=== PATIENT | male | born 1940 | race Caucasian/White ===

== ENCOUNTER 2024-09-01 08:48 | Outpatient (CLI) | payer MEDICARE, SELFPAY ==
--- NOTE | ~2024-09-01 | CT_ITS ---
CT sinus wo con Ordering provider: Tam Grewal M.D. History: . J33.8 - Other polyp of sinus . Comparison: None. Technique: Thin slice Scans CT of the paranasal sinuses was performed with coronal and sagittal refor matted images. No IV contrast. . Automated exposure control and iterative reconstruction technique w ere employed. The dose-length product was 272.65 mGy-cm. Findings: NASAL SEPTUM: Mild left nasal septal deviation. Polyp is seen in the right nasal cavity anteriorly. P ossible polyp in the left nasal cavity medially. Clinical correlation advised. OSTEOMEATAL UNITS: The left is obliterated by mucosal thickening. NASAL TURBINATES AND NASOPHARYNX: Normal. PARANASAL SINUSES: Bilateral sphenoid, maxillary and ethmoid sinus disease. VISUALIZED MASTOIDS: Normal as visualized. BONES: Normal. SUPERFICIAL SOFT TISSUES/VISUALIZED BRAIN PARENCHYMA: Normal. IMPRESSION: Left nasal septal deviation. Polyp in the right nasal cavity anteriorly. Possible polyp in the left nasal cavity medially. Pansinusitis. Reviewed, dictated and finalized at location A. IMPRESSION: Left nasal septal deviation. Polyp in the right nasal cavity anteriorly. Possible polyp in the left nasal ca vity medially. Pansinusitis.
--- OUTSIDE RECORDS SUMMARY | 2024-09-01 09:10 | XMS_ITS | CONTINUITY OF CARE DOCUMENT ---
Author Name monroe childress Address Unknown Organization [facility] Address [address] [place] [address] Phone [phone] Care Team Providers Care Sediment Remediation Consultant Name Role Phone Carmita AYALA, Emmanuel Unavailable [phone] SNOW AYALA, SHAYNA Unavailable SNOW AYALA, SHAYNA Unavailable PROBLEMS Condition Status Date Provider Notes CAD active Emmanuel Vizcarra MD Pulmonary hypertension active Emmanuel Vizcarra MD Transient cerebral ischemia/CEREBRAL ATEHRO active Emmanuel Vizcarra MD HAD CE A n o cva Bradycardia;not due to rx completed 10/03 - Emmanuel Vizcarra MD FAMILY HISTORY OF HEART DISEASE active Emmanuel Vizcarra MD dad and brother Overweight active Emmanuel Vizcarra MD did not affoded wegogy Tobacco use, quit active Emmanuel Vizcarra MD t o remote to screen Carotid artery disease active Emmanuel Vizcarra MD cea 2022 Screening active Emmanuel Vizcarra MD HYPERTENSION active Emmanuel Vizcarra MD GERD active Emmanuel Vizcarra MD Anemia, B12 deficiency and IRON DEF active Emmanuel Vizcarra MD NEG FOLATE Adenomatous colonic polyp active Emmanuel garcia MD Anemia completed - Emmanuel Vizcarra MD Valvular heart disease completed 8 - Emmanuel Vizcarra MD severe as Diastolic CHF AND LVH active Emmanuel Vizcarra MD could not affored jardicne Sleep apnea active Emmanuel Vizcarra MD Hard of hearing active Emmanuel Vizcarra MD Hyperlipidemia;tami killianpa adn low crp active Emmanuel Vizcarra MD Other terminal block assembler (current) drug therapy completed - Emmanuel Vizcarra MD added for coverage of labs Prostate cancer active Emmanuel Vizcarra MD 200 2 covid 19;2020;HAD VACCINE active Emmanuel garcia MD Aortic atherosclerosis active Emmanuel Vizcarra MD Hiatal hernia active Emmanuel Vizcarra MD Cerebral atherosclerosis active Emmanuel adams MD no cva Aortic stenosis active Emmanuel Vizcarra MD had tavr 24 Vitamin D deficiency active Emmanuel Smith Bradycardia;nml tsh;not due to rx active Emmanuel Vizcarra MD ENCOUNTERS Date Type Provider Location Encounter Diag nosis - In-person encounter Office Visit Emmanuel [facility] Bradycardia;nml tsh;not due to rx - In-person encounter Office Visit Emmanuel Thompson [facility] OverweightDiastolic CHF AND LVH - In-person encounter Office Visit [facility] - In-person encounter Office Visit Emmanuel [facility] Valvular heart diseaseOther terminal block assembler (current) drug therapyAortic stenosisVitamin D deficiency - In-person encounter Office Visit [facility] Aortic stenosis - In-person encounter Office Visit Emmanuel [facility] Bradycardia;not due to rxAortic atherosclerosisHiatal herniaCerebral atherosclerosis - In-person encounter Office Visit Emmanuel [facility] Transient cerebral ischemia/CEREBRAL ATEHROAnemiaHyperlipidemia;wit ih highlpa adn low crpProstate cancercovid 19;2020;HAD VACCINE - In-person encounter Office Visit Emmanuel Vizcarra MD [place] [facility] Transient cerebral ischemia/CEREBRAL ATEHROFAMILY HISTORY OF HEART DISEASEOverweightTobacco use, quitCarotid artery diseaseScreeningHYPERTENSIONGE RDAnemia, B12 deficiency and IRON DEFAdenomatous colonic polypValvular heart diseaseDiastolic CHF AND LVHSleep apneaHard of hearing VITAL SIGNS Date Observation Value Provider Body Mass Index (Ratio) 28.31 kg/m2 Geo Vizcarra MD blood pressure, diastolic 80 mm[Hg] Sergio Spaulding blood pressure, systolic 142 mm[Hg] Pam heavena Jasson oxygen saturation, oximetry 98 % Aisha Spaulding pulse rate 55 /min Aisha Spaulding respiratory rate E&M 18 /min Aisha Spaulding weight E&M 203 [lb_av] Aisha Spaulding blood pressure, cuff size regular Sergio Spaulding height E&M 71 [in_i] Aisha Jasson Body Mass Index (Ratio) 27.61 kg/m2 Geo Vizcarra MD blood pressure, diastolic 76 mm[Hg] Vi dale Boland blood pressure, systolic 148 mm[Hg] [facility]ip [facility] E&M 12 /min [facility], oximetry 99 % Daniel [facility] pulse rate 63 /min Daniel [facility] weight E&M 198 [lb_av] [facility] blood pressure, cuff size regular Radha Boland height E&M 71 [in_i] Daniel [facility] Body Mass Index (Ratio) 28.73 kg/m2 Agustin Garcia MD blood pressure, cuff size regular Ke rri Gruenenfelder blood pressure, diastolic 62 mm[Hg] Ke rri Gruenenfelder blood pressure, systolic 124 mm[Hg] Taran ri Rondanetseringelder oxygen saturation, oximetry 97 % Starr Carolinaelder pulse rate 56 /min Starr Gruenenfe lder weight E&M 206 [lb_av] Starr Gruenenfe lder height E&M 71 [in_i] Starr Gruenenfe [facility] Body Mass Index (Ratio) 28.87 kg/m2 Geo Vizcarra MD blood pressure, diastolic 62 mm[Hg] Vi pin [facility] blood pressure, systolic 138 mm[Hg] [facility] in [facility] oxygen saturation, oximetry 98 % [facility] respiratory rate E&M 16 /min [facility] M akana pulse rate 60 /min [facility] weight E&M 207 [lb_av] [facility] blood pressure, cuff size regular Vi pin [facility] height E&M 71 [in_i] [facility] Body Mass Index (Ratio) 28.50 kg/m2 Agustin Garcia MD blood pressure, cuff size regular Am mery [place] RN blood pressure, diastolic 82 mm[Hg] Am mery Kang RN blood pressure, systolic 131 mm[Hg] [place] nda [place] RN oxygen saturation, oximetry 99 % Alyx Lynchyle RN pulse rate 63 /min Alyx Lynchyle RN weight E&M 204.4 [lb_av] Alyx Lynchyle RN respiratory rate E&M 16 /min Alyxmery Lynchyle RN height E&M 71 [in_i] Alyx Kapadia RN Body Mass Index (Ratio) 28.34 kg/m2 Geo Vizcarra MD blood pressure, diastolic 63 mm[Hg] Ky shyann Panda blood pressure, systolic 113 mm[Hg] Kyl ia Panda oxygen saturation, oximetry 98 % Fosterlierin Panda pulse rate 71 /min Kylia Panda respiratory rate E&M 12 /min Kylia Aracelis raham weight E&M 203.2 [lb_av] Fosterlia Panda blood pressure, cuff size regular Ky shyann Panda height E&M 71 [in_i] Kylia Panda Body Mass Index (Ratio) 29.29 kg/m2 Geo Vizcarra MD blood pressure, cuff size regular Ke rri Gruenenfeld blood pressure, diastolic 80 mm[Hg] Ke rri Gruenenfelder blood pressure, systolic 126 mm[Hg] Taran ri Lorne oxygen saturation, oximetry 99 % Starr Ranihu [facility] respiratory rate E&M 14 /min Starr ochoaeld pulse rate 52 /min Starr Alejandro er weight E&M 210 [lb_av] Starr Docuenenfe er height E&M 71 [in_i] Starr Docuenenfe [facility] Body Mass Index (Ratio) 28.45 kg/m2 Geo Vizcarra MD blood pressure, diastolic 74 mm[Hg] Li nkLogic blood pressure, systolic 121 mm[Hg] Pastora kLogic blood pressure, diastolic 74 mm[Hg] Ja rret blood pressure, systolic 121 mm[Hg] Jar ret pulse rate 58 /min Juan Pablo y height E&M 71 [in_i] Juan Pablo y blood pressure, cuff size regular Ja rret oxygen saturation, oximetry 99 % Juan Pablo respiratory rate E&M 16 /min Juan Pablo weight E&M 204 [lb_av] Juan Pablo y ALLERGIES Allergy Name Onset Date Reaction Criticality Status METOPROLOL TARTRATE kwasi Low Criticality active RESULTS Date Observation Value Provider Reference Range Interpretation Location basophil count, absolute 0.0 x10E3/uL [facility] 0.0-0.2 Eosinophil Absolute Count 0.2 X10E3/UL [facility] 0.0-0.4 monocyte count, blood, automated 0.4 X10E3/UL [facility] 0.1-0.9 lymphocyte count, blood, automated 1.2 X10E3/UL [facility] 0.7-3.1 Absolute Neutrophils 4.1 X10E3/UL [facility] 1.4-7.0 basophils as percent of blood leukocytes 1 % [facility] Not Estab. eosinophils as percent of blood leukocytes 3 % [facility] Not Estab. monocytes as percent of blood leukocytes 7 % [facility] Not Estab. lymphocytes as percent of blood leukocytes 20 % [facility] Not Estab. neutrophils as percent of blood leukocytes 69 % [facility] Not Estab. platelet count 217 X10E3/UL [facility] 991-339 8676/02/ 06 red blood cell distribution width 20.9 % [facility] 11.6-15.4 High mean corpuscular hemoglobin concentration, RBC 32.4 G/DL [facility] 31.5-35.7 mean corpuscular hemoglobin, RBC 29.2 pg [facility] 26.6-33.0 mean corpuscular volume, RBC 90 fL [facility] 79-97 hematocrit, blood 39.5 % [facility] 37.5-51.0 hemoglobin, blood 12.8 g/dL [facility] 13.0-17.7 Low erythrocyte (RBC) count 4.39 X10E6/UL [facility] 4.14-5.80 leukocyte count, blood 5.9 X10E3/UL [facility] 3.4-10.8 pro brain natriuretic peptide 464 pg/mL [facility] 0-486 free thyroxine index 1.6 [facility] 1.2-4.9 triiodothyronine resin uptake 26 % [facility] 24-39 thyroxine, serum, total 6.0 ug/dL [facility] 4.5-12.0 thyroid stimulating hormone, serum 1.720 u[IU]/mL [facility] 0.450-4.500 ferritin, serum 11 ng/mL [facility] 30-400 Low folate, serum 10.0 ng/mL [facility] >3.0 iron saturation percent, serum 4 % [facility] 15-55 Critical low iron, serum 18 ug/dL [facility] 38-169 Low iron binding capacity, unsaturated 403 ug/dL [facility] 111-343 High iron binding capacity, total 421 ug/dL [facility] 591-749 2894/12/ 06 basophil count, absolute 0.0 x10E3/uL [facility] 0.0-0.2 Eosinophil Absolute Count 0.2 X10E3/UL [facility] 0.0-0.4 monocyte count, blood, automated 0.5 X10E3/UL [facility] 0.1-0.9 lymphocyte count, blood, automated 1.4 X10E3/UL [facility] 0.7-3.1 Absolute Neutrophils 3.7 X10E3/UL [facility] 1.4-7.0 basophils as percent of blood leukocytes 1 % [facility] Not Estab. eosinophils as percent of blood leukocytes 3 % [facility] Not Estab. monocytes as percent of blood leukocytes 8 % [facility] Not Estab. lymphocytes as percent of blood leukocytes 24 % [facility] Not Estab. neutrophils as percent of blood leukocytes 64 % [facility] Not Estab. platelet count 220 X10E3/UL [facility] 128-296 2344/12/ 06 red blood cell distribution width 14.5 % [facility] 11.6-15.4 mean corpuscular hemoglobin concentration, RBC 29.2 G/DL [facility] 31.5-35.7 Low mean corpuscular hemoglobin, RBC 23.1 pg [facility] 26.6-33.0 Low mean corpuscular volume, RBC 79 fL [facility] 79-97 hematocrit, blood 29.8 % [facility] 37.5-51.0 Low hemoglobin, blood 8.7 g/dL [facility] 13.0-17.7 Low erythrocyte (RBC) count 3.77 X10E6/UL [facility] 4.14-5.80 Low leukocyte count, blood 5.9 X10E3/UL [facility] 3.4-10.8 Estimated Glomerular Filtration Rate (calc) 81 mL/min/{ 1.73_m2} [facility] >=60 Normal C, [address] [address] NT-pro BNP 1183 Link[facility] <=450 High C, [address] [address] aspartate aminotransferase (SGOT), serum 19 1/L [facility] 10-50 Normal C, [address] [address] alanine aminotransferase (SGPT), serum 9 1/L [facility] 7-55 Normal C, [place] [address] Alkaline phosphatase 35 [facility] 40-130 Low C, [place] [address] albumin, serum 4.0 g/dL [facility] 3.5-5.0 Normal C, [place] [address] protein, total, serum 7.0 g/dL [facility] 6.5-8.5 Normal C, [place] [address] bilirubin, serum, total 0.3 mg/dL [facility] 0.1-1.2 Normal , [place] [address] calcium, serum 10.5 mg/dL [facility] 8.5-10.3 High C, [place] [address] blood glucose, random 83 mg/dL [facility] 70-199 Normal C, [place] [address] creatine, serum 0.93 mg/dL [facility] 0.80-1.30 Normal , [place] [address] urea nitrogen, blood 19 mg/dL [facility] 6-25 Normal C, [place] [address] anion gap, serum 10 mmol/L [facility] 2-15 Normal C, [place] [address] carbon dioxide, venous blood 22 mmol/L [facility] 22-32 Normal C, [place] [address] chloride, serum 106 mmol/L [facility] 97-110 Normal , [place] [address] potassium, serum 4.7 MMOL/L [facility] 3.3-4.9 Normal [place] [address] sodium, serum 138 mmol/L [facility] 135-145 Normal C, [place] [address] activated partial thromboplastin time (aPTT) 33 s [facility] 28-38 Normal C, [place] [address] international normalized ratio (INR) 0.96 [facility] 0.90-1.20 Normal C, [place] [address] prothrombin time (patient) 10.4 s [facility] 9.7-13.0 Normal C, [place] [address] Absolute Basophils 0.0 K/CUMM [facility] 0.0-0.1 Normal C, [place] [address] Absolute Monocytes 0.5 K/CUMM [facility] 0.2-0.8 Normal C, [place] [address] Absolute Lymphocytes 1.4 K/CUMM [facility] 0.8-3.3 Normal C, [place] [address] Absolute Neutrophils 3.5 K/CUMM [facility] 1.5-6.5 Normal C, [place] [address] nucleated red blood cells as percent of blood leukocytes 0.00 K/CUMM [facility] 0.00-0.01 Normal red blood cell distribution width, size density 44.2 fL [facility] 35.7-48.1 Normal mean corpuscular hemoglobin concentration, RBC 29.5 G/DL [facility] 32.3-35.7 Low mean corpuscular hemoglobin, RBC 24.9 pg [facility] 27.1-33.3 Low mean corpuscular volume, RBC 84.4 fL [facility] 81.3-96.4 Normal erythrocyte count, whole blood 3.90 M/CUMM [facility] 4.30-5.80 Low mean platelet volume 10.4 fL [facility] 9.1-12.3 Normal platelet count 287 10*3/uL [facility] 150-400 Normal hematocrit, blood 32.9 % [facility] 38.9-50.3 Low hemoglobin, blood 9.7 g/dL [facility] 13.0-17.5 Low creatinine, serum 1.06 mg/dL [facility] 0.76-1.27 pro brain natriuretic peptide 1981 pg/mL [facility] 0-486 High prothrombin time (patient) 10.8 s [facility] 9.1-12.0 international normalized ratio (INR) 1.0 [facility] 0.9-1.2 calcium, serum 10.4 mg/dL [facility] 8.6-10.2 High carbon dioxide, venous blood 23 mmol/L [facility] 20-29 chloride, serum 106 mmol/L [facility] 96-106 potassium, serum 4.7 mmol/L [facility] 3.5-5.2 sodium, serum 140 mmol/L [facility] 926-169 8556/09/ 13 urea nitrogen/creatinine ratio, serum 15 [facility] 10-24 creatinine, serum 1.02 mg/dL [facility] 0.76-1.27 urea nitrogen, blood 15 mg/dL [facility] 8-27 blood glucose, random 88 mg/dL [facility] 70-99 basophil count, absolute 0.0 x10E3/uL [facility] 0.0-0.2 Eosinophil Absolute Count 0.2 X10E3/UL [facility] 0.0-0.4 monocyte count, blood, automated 0.5 X10E3/UL [facility] 0.1-0.9 lymphocyte count, blood, automated 1.7 X10E3/UL [facility] 0.7-3.1 Absolute Neutrophils 3.9 X10E3/UL [facility] 1.4-7.0 basophils as percent of blood leukocytes 1 % [facility] Not Estab. eosinophils as percent of blood leukocytes 4 % [facility] Not Estab. monocytes as percent of blood leukocytes 7 % [facility] Not Estab. lymphocytes as percent of blood leukocytes 27 % [facility] Not Estab. neutrophils as percent of blood leukocytes 61 % [facility] Not Estab. platelet count 256 X10E3/UL [facility] 041-043 5414/09/ 13 red blood cell distribution width 12.4 % [facility] 11.6-15.4 mean corpuscular hemoglobin concentration, RBC 30.5 G/DL [facility] 31.5-35.7 Low mean corpuscular hemoglobin, RBC 28.1 pg [facility] 26.6-33.0 mean corpuscular volume, RBC 92 fL [facility] 79-97 hematocrit, blood 33.8 % [facility] 37.5-51.0 Low hemoglobin, blood 10.3 g/dL [facility] 13.0-17.7 Low erythrocyte (RBC) count 3.67 X10E6/UL [facility] 4.14-5.80 Low leukocyte count, blood 6.3 X10E3/UL [facility] 3.4-10.8 HISTORY OF MEDICATION USE Medication Status Instructions Dates Provider Indications Com ments hydrochlorothiazide 12.5 mg tablet active Take 1 tablet by mouth once daily Emmanuel Vizcarra MD Xarelto 2.5 mg tablet active TAKE 1 TAB LET TWICE A DAY Emmanuel Vizcarra MD fluticasone propionate 50 mcg/actuation spray,suspension active Aisha Spaulding prednisone 20 mg tablet active Aisha Spaulding Jardiance 10 mg tablet completed Take 1 tablet by mouth once a day - Emmanuel Vizcarra MD [place] 200 mg tablet completed Take 1 tabl et by mouth once a day - Emmanuel Vizcarra MD Feosol 325 mg (65 mg iron) tablet active TAKE 1 TABLET BY MOUTH EVERY DAY Emmanuel Vizcarra MD ergocalciferol (vitamin D2) 1,250 mcg (50,000 unit) capsule active Take 1 capsule by mouth once a week Emmanuel Vizcarra MD Wegovy 0.25 mg/0.5 mL pen injector completed Inject 1 pen injector subcutaneously once a week - Emmanuel Vizcarra MD cyanocobalamin (vitamin B-12) 1,000 mcg capsule active TAKE 1 CAPSULE BY MOUTH EVERY DAY Emmanuel Vizcarra MD clopidogrel 75 mg tablet completed TAKE 1 TABLET BY MOUTH DAILY - Emmanuel Vizcarra MD clopidogrel 75 mg tablet completed Take 1 tablet by mouth once a day - Abidachrist Teresa ranolazine 500 mg tablet extended release 12 hr completed TAKE 1 TABLET BY MOUTH TWICE DAILY - Emmanuel Vizcarra MD losartan 100 mg tablet active Emmanuel Vizcarra MD simvastatin 40 mg tablet active Emmanuel Vizcarra MD Aspirin Childrens 81 mg tablet,chewable active Emmanuel Vizcarra MD Pepcid AC 10 mg tablet completed - Emmanuel Vizcarra MD Prevacid 30 mg capsule,delayed release(DR/EC) active Emmanuel Vizcarra MD cyanocobalamin (vitamin B-12) 1,000 mcg capsule completed - Emmanuel Vizcarra MD SOCIAL HISTORY Date Observation Value Provider cigarette use yes Emmanuel Vizcarra MD smoking status Former smoker Emmanuel khan MD cigarette use yes Emmanuel Vizcarra MD smoking status Former smoker Emmanuel khan MD cigarette use yes Emmanuel Vizcarra MD smoking status Former smoker Emmanuel khan MD cigarette use yes Emmanuel Vizcarra MD smoking status Former smoker Emmanuel khan MD cigarette use yes Emmanuel Vizcarra MD smoking status Former smoker Emmanuel khan MD quit smoking, stage quit Emmanuel rader MD cigarette use yes Juan Pablo Lau ay smoking status Former smoker Juan Pablo Delmar stephanie FUNCTIONAL STATUS Date Observation Value Provider HRA, CV Assess/Plan, Angina (inactive) Management Plan continue current therapy Emmanuel Vizcarra MD HRA, CV Assess/Plan, Angina (inactive) Management Plan continue current therapy Emmanuel Vizcarra MD HRA, CV Assess/Plan, Angina (inactive) Management Plan continue current therapy Chuck Garcia MD HRA, CV Assess/Plan, Angina (inactive) Management Plan continue current therapy Emmanuel Vizcarra MD HRA, CV Assess/Plan, Angina (inactive) Management Plan continue current therapy Chuck Garcia MD HRA, CV Assess/Plan, Angina (inactive) Management Plan continue current therapy Emmanuel Vizcarra MD HRA, CV Assess/Plan, Angina (inactive) Management Plan continue current therapy Emmanuel Vizcarra MD INSURANCE PROVIDERS Payer name Policy type / Coverage type [place] red republic[place]IC[place] B Medicare [id number] [facility] [employer] insurance [employer] [id number] ADVANCE DIRECTIVES Name Date DISCUSSED - NO DECISION MADE TREATMENT PLAN Date Name Performer Cardiology: f u neg 25 Emmanuel Vizcarra MD Cardiology: f u echo goo with mild tr and mild mr Emmanuel Vizcarra MD Cardiology Emmanuel Vizcarra MD Cardiology: H is updated medication list for this problem includes: Losartan 100 Mg Tablet (Losartan) Aspirin Childrens 81 Mg Tablet,chewable (Aspirin) BP today: 142/80 P rior BP: 148/76 (04/23/2024) Labs Reviewed: C reat: 1.06 (12/18/2023) Emmanuel Vizcarra MD Cardiology: 4 64 ef 60% Emmanuel Vizcarra MD Cardiology: m ild p t does not watn rx for ramy of symtpme Emmanuel Vizcarra MD Cardiology Emmanuel Vizcarra MD Cardiology: 4 0 Emmanuel Vizcarra MD Cardiology: n eg psa Emmanuel Vizcarra MD Cardiology Emmanuel Vizcarra MD Cardiology: c orrecteded up tod date on colon Emmanuel Vizcarra MD Cardiology Emmanuel Seroterin AYALA Cardiology: 2 500 lad 40% Emmanuel Vizcarra MD :correcteded up tod date on colo n Emmanuel Vizcarra MD Cardiology: H is updated medication list for this problem includes: Simvastatin 40 Mg Tablet (Simvastatin) Emmanuel Vizcarra MD Cardiology: m ild p t does not watn rx for ramy of symtpme Emmanuel Vizcarra MD Cardiology: n eg psa Emmanuel Vizcarra MD Cardiology Emmanuel Vizcarra MD Cardiology Emmanuel Vizcarra MD Cardiology Emmanuel Vizcarra MD Cardiology:2500 lad 40% Emmanuel S dior AYALA Cardiology:up to date on colaon Emmanuel Vizcarra MD Cardiology: N EG UACR AND EGFR AND PFT AND TSH b rady in past due to bb Emmanuel Vizcarra MD Cardiology: f u echo goo with mild tr and mild mr Emmanuel Carmita AYALA Cardiology: 4 64 ef 60% Emmanuel Vizcarra MD :fu echo goo with mild tr and mi ld mr Emmanuel Vizcarra MD :40 Emmanuel Vizcarra MD :464 ef 60% Emmanuel Vizcarra MD Cardiology: H is updated medication list for this problem includes: Simvastatin 40 Mg Tablet (Simvastatin) Chuck Garcia MD Cardiology:no angina Chuck Garcia MD Cardiology:This is a n 83 years old male who presents for f/u post TAVR- he had critical and reveived a Tom Francisco 3, ultra resilia 26 mm valve. He has been doing well since and denies chest pains, dizziness, sob. He is able to take long walks and walk up inclines witihout problems.He is satisfied by the results. asa + plavix for 90 days t hen down to asa alone echo soon Chuck Garcia MD :464 Emmanuel Vizcarra MD :NEG UACR AND EGFR AND PFT AND T SH Emmanuel Vizcarra MD Cardiology:33 Emmanuel Vizcarra MD Cardiology:2500 lad 40% C ardiac cath showed non obstructive cad. Emmanuel Vizcarra MD Cardiology: H is updated medication list for this problem includes: Simvastatin 40 Mg Tablet (Simvastatin) Emmanuel Vizcarra MD Cardiology: n eg psa Emmanuel Vizcarra MD Cardiology: f u neg 12/2023 Emmanuel Vizcarra MD Cardiology Emmanuel Vizcarra MD Cardiology:646 d o to as 1 900 Emmanuel Vizcarra MD Cardiology: n eg uacr n eg egfr and pft Emmanuel Vizcarra MD Cardiology:fu echo midl mr and t r Emmanuel Vizcarra MD Cardiology: H is updated medication list for this problem includes: Simvastatin 40 Mg Tablet (Simvastatin) Emmanuel Vizcarra MD Cardiology: n eg psa Emmanuel Vizcarra MD Cardiology: f u neg 12/2023 Emmanuel Vizcarra MD Cardiology: d o to as 1 900 Emmanuel Vizcarra MD Cardiology: n eg uacr n eg egfr and pft Emmanuel Vizcarra MD Cardiology Emmanuel Vizcarra MD :fu neg 12/2023 Emmanuel Vizcarra MD Cardiology: H is updated medication list for this problem includes: Losartan 100 Mg Tablet (Losartan) Aspirin Childrens 81 Mg Tablet,chewable (Aspirin) BP today: 131/82 P rior BP: 113/63 (12/13/2023) Labs Reviewed: C reat: 1.02 (11/30/2023) Chuck Garcia MD Cardiology:to have carotid doppl ers Chuck Garcia MD Cardiology: The bello ent comes in today for f/u of severe . The patient complains of exertional dyspnea with exertion such as one flight of stairs. He has to stop when walking on level ground. He has had had some lightleadedness on standing up. No syncope. No edema, palpiations. H is echo showed with normal lvef and . The Aortic Valve Peak Gradient is 79.70 mmHg. T he Aortic Valve Mean Gradient is 45.10 mmHg. The MAJOR is 0.7 cm2. The Aortic Valve Peak Gradient is 79.70 mmHg. The Aortic Valve Mean Gradient is 45.10 mmHg C ardiac cath showed non obstructive cad. Iliac and femorals were fine for access for tavr. detailed d/w pt and his regarding tavr planning, procedure, complications, imiidiate and terminal block assembler and f/u h e wishes to proceed with further eval for tavr and will get ct scan and pft also w ill contact tavr coordinator Chuck Garcia MD Cardiology:Cardiac cath showed n on obstructive cad. Chuck Garcia MD Cardiology Emmanuel Vizcarra MD Cardiology Emmanuel Vizcarra MD Cardiology: m ild p t does not watn rx for ramy of symtpme Emmanuel Vizcarra MD Cardiology Emmanuel Vizcarar MD Cardiology Emmanuel Vizcarra MD Cardiology Emmanuel Vizcarra MD Cardiology:do to as 1 900 Emmanuel Vizcarra MD Cardiology: n eg uacr n eg egfr and pft Emmanuel Vizcarra MD Cardiology:no ai m illd ot mod mr and mild tr by echo s evere as by echo could not cross aortic valve Emmanuel Vizcarra MD Cardiology: 3 1 Emmanuel Vizcarra MD Cardiology: s core 2500 40% mid lad cad by cath Emmanuel Vizcarra MD Cardiology Emmanuel Vizcarra MD think tsh:score 2500 40% mid lad cad by cath Emmanuel Vizcarra MD think tsh:milld ot m od my and mild tr by echo s evere as by echo could not cross aortic valve Emmanuel Vizcarra MD think tsh:score 2500 mild cad by cath Emmanuel Vizcarra MD needs iron and foalte:1900 Varinder Vizcarra MD Cardiology Emmanuel Vizcarra MD Cardiology:neg psa Emmanuel Viczarra MD Cardiology Emmanuel Vizcarra MD Cardiology Emmanuel Vizcarra MD Cardiology:31 Emmanuel Vizcarra MD Cardiology Emmanuel Vizcarra MD Cardiology Emmanuel Vizcarra MD Cardiology: s evere , mild to mod mr and mild tr Emmanuel Vizcarra MD Cardiology:neg uacr n eg egfr and pft Emmanuel Vizcarra MD Cardiology: 2 500 score Emmanuel Vizcarra MD Cardiology: m ild p t does not watn rx for ramy of symtpme Emmanuel Vizcarra MD :mild Emmanuel Vizcarra MD :2500 score Emmanuel Vizcarra MD :neg egfr and pft Emmanuel Vizcarra MD :severe , mild to mod mr and m ild tr Emmanuel Vizcarra MD Cardiology:FU DONE AT [facility] Emmanuel Vizcarra MD Cardiology:neg egfr Emmanuel khan MD Cardiology:SX Emmanuel Vizcarra MD Cardiology Emmanuel Vizcarra MD Cardiology Emmanuel Vizcarra MD Cardiology Emmanuel Vizcarra MD Cardiology Emmanuel Vizcarra MD Cardiology Emmanuel Vizcarra MD Cardiology Emmanuel Vizcarra MD Cardiology Emmanuel Vizcarra MD Cardiology Emmanuel Vizcarra MD Cardiology:MILD TR P AP 30 M OD 22 M ILD MR Emmanuel Vizcarra MD Date Name Carotid Duplex Bilat eral EKG Monitor - Telemetry (Mobile Cardiac) CBC (INCLUDES DIFF/P LT) Complete Echo Complete Echo PROBNP, N TERMINAL Complete Echo FOLATE, SERUM Monitor - Telemetry (Mobile Cardiac) TSH, free T4, total T3 Carotid Duplex Bilat eral IRON AND TOTAL IRON BINDING CAPACITY FERRITIN CBC (INCLUDES DIFF/P LT) CT Angio, abdomen an d pelvis CT Angio Chest (Aort a) CT Cardiac with cont rast (Pre-Ablation) Creatinine, Serum Holter Monitor 24 Hr FOLATE, SERUM IRON AND TOTAL IRON BINDING CAPACITY FERRITIN TSH, free T4, total T3 RPM (remote patient monitoring) PROBNP, N TERMINAL PROTHROMBIN TIME WIT H INR CBC (INCLUDES DIFF/P LT) BASIC METABOLIC PANE L W/EGFR AORTAGRAM, ABDOMINAL AORTIC ROOT RT & LT HRT CATH [facility]EL[facility] PROCED URES CXR- PA/Lat Holter Monitor 24 Hr Carotid Duplex Bilat eral PROBNP, N TERMINAL DLCO - 47536 FRC - 93474 FVC - 25837 Sleep Study Home PROTHROMBIN TIME WIT H INR LIPID PANEL CBC (INCLUDES DIFF/P LT) BASIC METABOLIC PANE L W/EGFR Complete Echo CT, Coronary Calcium Score Holter Monitor 24 Hr FOLATE, SERUM IRON AND TOTAL IRON BINDING CAPACITY FERRITIN CBC (INCLUDES DIFF/P LT) Vitamin D, 25-Hydrox y TSH, free T4, total T3 Microalb/Creatinine Urine, Random CRP, high sensitivit y Lipoprotein (a) LIPID PANEL Carotid Duplex Bilat eral Complete Echo HISTORY OF PROCEDURES Procedure Date Procedure Name Provider Procedure Notes S tatus Complex e/m visit add on Emmanuel Vizcarra MD completed Complex e/m visit add on Chuckgregorio Garcia MD completed Complex e/m visit add on Emmanuel Vizcarra MD completed Complex e/m visit add on Chuck Garcia MD completed Complex e/m visit add on Emmanuel Vizcarra MD completed Complex e/m visit add on Emmanuel Vizcarra MD completed Spirometry Emmanuel Vizcarra MD complete d FVC / MVV - 61371 Emmanuel Vizcarra MD c ompleted BLOOD COUNT HEMOGLOBIN Emmanuel Vizcarra MD completed SpO2 w/o 6min walk/titration Emmanuel Vizcarra MD completed SVC - [id number] Emmanuel Vizcarra MD complet ed DLCO - 06353 Emmanuel Vizcarra MD comple jina CT- Coronary CA score Emmanuel Vizcarra MD completed EKG Emmanuel Vizcarra MD complete d
--- OUTSIDE RECORDS SUMMARY | 2024-09-01 09:10 | XMS_ITS | Clinical Summary ---
Author Organization [facility] Address [address] [place] [address] Care Team Providers Care Senior Medical Technologist Name Role Phone Naren Sanchez MD Primary Care Provider Allergies Active Allergy Reactions Criticality Noted Date Comments Hydroxychloroquine Diarrhea Low 12/02/2021 Lisinopril Cough Low 12/02/2021 Metoprolol Tartrate Other (See comments) Low 2023 Bradycardia Medications losartan (COZAAR) 100 mg tabletIndicati ons:hypertensi on Take 1 tablet (100 mg total) by mouth every morning Active simvastatin (ZOCOR) 40 mg tabletIndicati ons:hyperlipid emia Take 1 tablet (40 mg total) by mouth nightly 1 09/10/19 18 Active triamcinolone (KENALOG) 0.1 % cream Apply oint bid prn to areas of eczema 60 g 3 04/26/19 21 Active loratadine (CLARITIN) 10 mg tabletIndicati ons:Allergic Rhinitis Take 1 tablet (10 mg total) by mouth daily as needed Active acetaminophen 500 mg capsuleIndicat ions:Pain Take 2 capsules (1,000 mg total) by mouth every 8 (eight) hours 90 tablet 10/28/19 23 Active Additional Information Patient taking differently:1,000 mg oral3 times daily PRN, Indications: Pain, Reported on 01/22/2024 aspirin 81 mg enteric coated tablet Take 1 tablet (81 mg total) by mouth daily Active diphenhydrAMIN E 25 mg capsule Take 1 tablet/capsule (25 mg total) by mouth every 6 (six) hours as needed for itching Active lansoprazole (PREVACID) 30 mg capsule Take 1 capsule (30 mg total) by mouth daily Active fluticasone propionate (FLONASE) 50 mcg/actuation nasal spray Administer 1 spray into each nostril daily as needed for rhinitis Active cyanocobalamin , vitamin B-12, 1,000 mcg capsule Take 1 tablet by mouth daily Active clopidogreL (PLAVIX) 75 mg tablet Take 1 tablet (75 mg total) by mouth daily 30 tablet 11 01/23/20 24 025 Active FeroSuL 325 mg (65 mg iron) tablet Take 1 tablet (325 mg total) by mouth daily Active ergocalciferol (VITAMIN D) 50,000 unit capsule ergocalciferol (vitamin D2) 1,250 mcg (50,000 unit) capsule 02/20/20 24 Active senna-docusate (PERICOLACE) 8.6-50 mgIndications: constipation Take 2 tablets by mouth 2 (two) times a day 80 tablet 10/28/19 23 025 Discontin ued(Patie nt Reported) bisacodyl EC (DULCOLAX EC) 5 mg EC tabletIndicati ons:constipati on Take 1 tablet (5 mg total) by mouth daily as needed for constipation 30 tablet 3 09/10/19 24 025 Discontin ued(Patie nt Reported) Active Problems Problem Noted Date Diagnosed Date S/p TAVR (transcatheter aort ic valve replacement), bioprosthetic 01/22/2024 Severe aortic stenosis 01/07/2024 Encounter for surgical after care following surgery on the circulatory system 07/30/2023 Primary osteoarthritis of right knee 10/27/2022 History of TIA (transient ischemic attack) 10/18 History of prostate cancer 10/18/2022 At risk for obstructive sleep apnea 10/18/2022 Hematoma of neck 05/03/2022 Assessment & Plan (05/03/2022 9:36 AM LINING SETTER): - Right neck hematoma immediately post op, worsening post op day 1-2 - Patient endorsing discomfort with swallowing - ST consulted - Monitor neck hematoma - US 05/02: Hematoma within the right neck soft tissues without evidence of pseudoaneurysm. Carotid artery disease 05/01/2022 Stenosis of right carotid artery 04/12/2022 Overview (04/12/2022): Added automatically from request for surgery [id number] Assessment & Plan (05/03/2022 9:32 AM LINING SETTER): Hx of R carotid stenosis. Had a TIA in December 2021 with tingling of Right sided cheek, nose and right eye with blurred vision that lasted for 5-10 minutes and then resolved. No hx of CVA. Most recent US showed >70%. - 05/01 s/p R CEA - Q4 NV checks - BP goal 110-150 - Regular diet - OOB - cont ASA, statin - JEFF drain removed - Right neck hematoma (see other problem) Allergic rhinitis 12/02/2021 Basal cell carcinoma of face 12/02/2021 Benign essential hypertension 12/02/2021 Assessment & Plan (05/03/2022 9:43 AM LINING SETTER): Home regimen: losartan 100mg - restart home losartan as able, will resume at 1/2 dose today - SBP goal 110-150 Osteoarthritis of knee 12/02/2021 Primary malignant neoplasm of bladder 12/02/2021 Pure hypercholesterolemia 12/02/2021 Vertigo 10/26/2021 Gastroesophageal reflux disease without esophagi tis 06/05/2021 Assessment & Plan (05/01/2022 10:50 AM LINING SETTER): -cont home famotidine Assessment & Plan (06/05/2021 3:32 PM CDT): As there are the fewest risks associated with Pepcid, we would like the patient to try using this consistently and Tums if necessary for breakthrough. If this is insufficient, Prevacid, Nexium, or omeprazole can be used ideally for the shortest duration possible Encounter for screening colonoscopy 05/27/2020 Overview (05/27/2020): Added automatically from request for surgery [id number] History of colon polyps 05/27/2020 Overview (05/27/2020): Added automatically from request for surgery [id number] Assessment & Plan (06/05/2021 3:31 PM CDT): Given the size, nature and number of his polyps on his last scope, Dr. Stephens had wished to repeat the colonoscopy this year. We will plan to repeat this in August by which point we are hopeful that Dr. Stephens will be back. If he is not we will schedule him with 1 of her other endoscopists Chronic sinusitis 02/05/2017 Encounters Date Type Department Care Team Description 08/04/2024 11:15 AM CDT Office Visit [facility] [address] [place] [address] [place] [address] Claritza Ji NP Encounter for surgical aftercare following surgery on the circulatory system (Primary Dx) 08/04/2024 10:15 AM CDT Ancillary Procedure [facility] at the [facility] [address] [place] [address] [place] [address] Encounter for surgical aftercare following surgery on the circulatory system from Last 3 Months Immunizations Immunization Administration Dates Next Due Influenza, Quadrivalent, Spl it, Intramuscular 12/01/2020 Influenza, Trivalent, High D ose, Split, Preservative Free, Intramuscular 12/27/2018,12/11/2017,12/04/2016,12/09,12/02/2013 Influenza, Trivalent, IM (MDV) 01/13/2013 Influenza, Unspecified 12/17/2021 Pfizer SARS-CoV-2 Monovalent Vaccination (12+ Yrs) PURPLE 07/19/2021,05/20/2020,04/29/2020 Pneumococcal Conjugate PCV 13 07/23/2014 Surgical History Surgery Date Site/Laterality Comments NM PROSTATECTOMY RETROPUBIC W/WO NERVE SPARING Prostatectomy Retropubic Radical With Nerve Sparing - 2001 (Added by TW Conv) NM CYSTO W/REMOVAL OF TUMORS SMALL Cystoscopy With Fulguration Small Lesion (5-20mm) - 07/21,03/24,06/23 (Added by TW Conv) COLONOSCOPY PILONIDAL CYST DRAINAGE 1960 CAROTID ENDARTERECTOMY CATARACT EXTRACTION, BILATERAL TOTAL KNEE ARTHROPLASTY 10/17/2022 - 11/16/2022 Right Medical History Medical History Date Comments Colon polyp GERD (gastroesophageal reflux disease) Hypertension Peripheral vascular disease Cancer (HCC) prostate and rudi dder Hyperlipidemia Diverticulitis of colon Stroke (HCC) 2021 TIA Cataract Severe aortic stenosis Family History Medical History Relation Name Comments Heart attack Father Family history of acute myocardial infarction - (Added by TW Conv)/Family history of myocardial infarction - (Added by TW Conv) Stomach cancer Maternal Grandmother Breast cancer Mother Family history of malignant neoplasm of breast - (Added by TW Conv) Thyroid disease Mother Family histo ry of thyroid disease - (Added by TW Conv) Anesthesia problems Neg Hx Relation Name Status Comments Father Maternal Grandmother Mother Social History Tobacco Use Types Packs/Day Years Used Date Smoking Tobacco: Former Cigarettes 0.5 32 1 958 - 1989 Passive Smoke Exposure: Past Smokeless Tobacco: Never Tobacco Cessation:Counseling Given: Not Answered AUDIT-C Answer Date Recorded Q1: How often do you have a drink containing alcohol? 4 or more times a week 01/22/2024 Q2: How many drinks containi ng alcohol do you have on a typical day when you are drinking? 1 or 2 Q3: How often do you have si x or more drinks on one occasion? Never 01/22/2024 Personal Safety Answer Date Recorded Have you ever been in or are you currently in a harmful physical or emotional relationship or is someone making you feel afraid or unsafe? Denies 01/22/2024 Sex and Gender Information Value Date Recorded Sex Assigned at Not on file Legal Sex Male 3:06 AM LINING SETTER Gender Identity Not on file Sexual Orientation Not on file Obstetrics History Last Filed Vital Signs Vital Sign Reading Time Taken Comments Blood Pressure 145/75 08/04/2024 10:17 AM CDT Pulse 71 08/04/2024 10:17 AM CDT Temperature 36.9 C (98.5 F) 01/23/2024 5:55 AM LINING SETTER Respiratory Rate 18 01/23/2024 5:55 AM LINING SETTER Oxygen Saturation 99% 08/04/2024 10:17 AM CDT Inhaled Oxygen Concentration - - Weight 88.2 kg (194 lb 7.1 oz) 08/04/2024 10:17 AM CDT Height 180.3 cm (5' 11) 08/04/2024 10:17 AM CDT Body Mass Index 27.12 08/04/2024 10:17 AM CDT Plan of Treatment Health Maintenance Due Date Last Done Comments Depression Screening 1940 DTaP/Tdap/Td Vaccine (1 - Tdap) 07[birth year]02/1951 Hepatitis B Screening 1958 Zoster Vaccine (1 of 2) 1990 Well Visit 65+ 2005 Pneumococcal vaccine 65+ (2 of 2 - PPSV23) 07/24/2015 07/23/2014 Covid-19 Vaccine (4 - 2023-2 5 season) 2023 07/19/2021, 05/20/2020, 04/29/2020 Influenza Vaccine (Season Ended) 2024 12/17/2021, 12/01/2020, 12/27/2018, Additional history exists Fall Risk Assessment 01/22/2025 01/23/2024 Medical Devices Implanted Type Area Investment Counselor Device Identifier Shelf Expiration Date Model / Serial / Lot [employer] Simplex P Full Dose Radiopaque Preblend Cement Bone Tobramycin 6197-9-010 - Sna - [id number] Implanted:Qty: 1 on 10/27/2022 by Allie Haq MD at [facility] Bone Cement Right: Knee [employer] 01/17/2024 6197-9-010 / NA / [id number] [employer] Simplex P Full Dose Radiopaque Preblend Cement Bone Tobramycin 6197-9-010 - Sna - [id number] Implanted:Qty: 1 on 10/27/2022 by Allie Haq MD at [facility] Bone Cement Right: Knee [employer] 01/17/2024 6197-9-010 / NA / [id number] [employer] Dinesh Vascu-Guard 8x.8cm Peripheral Patch Vascular Bovine Pericardium Vg-0108n - [id number] Implanted:Qty: 1 on 05/01/[address] Ibarra MD at [facility] Other - see comments Right: Carotid Rocha Hyglos [id number] 12/26/2022 VG-0108N / / [id number] [employer] [id number] Persona Natural Tibia Stem Knee Right 5d F Baseplate Tibial - Sna - [id number] Implanted:Qty: 1 on 10/27/2022 by Allie Haq MD at [facility] Other - see comments Right: Knee [employer] [id number] 04/09/2032 [id number] / NA / [id number] Description:Implant pause pe rformed. [employer] Persona Cruciate Retain Cemented Knee Right 10 Standard Component [id number] - Sna - [id number] Implanted:Qty: 1 on 10/27/2022 by Allie Haq MD at [facility] Other - see comments Right: Knee [employer] [id number] 05/14/2031 [id number] / NA / [id number] Description:Implant pause pe rformed. [employer] Persona 10mm Knee Right 8-11 E-F Insert Articular Vivacit-E [id number] - Sna - [id number] Implanted:Qty: 1 on 10/27/2022 by Allie Haq MD at [facility] Other - see comments Right: Knee [employer] [id number] 08/25/2027 [id number] / NA / [id number] Description:Implant pause pe rformed. [employer] System Closure Repair Femoral Artery Suture Mediated Perclose Prostyle 49307-71 - [id number] Implanted:Qty: 1 on 01/22/2024 by Chuck Garcia MD at [facility] [employer] 10/16/2025 [id number] / / [id number] [employer] Valve Aortic Trnscath Francisco 3 Ultra Resilia 26mm [id number] - [id number] - [id number] Implanted:Qty: 1 on 01/22/2024 by Chuck Garcia MD at [facility] [employer] 11/26/2025 [id number] / [id number] / [employer]illo [employer] System Closure Repair Femoral Artery Suture Mediated Perclose Prostyle 14335-82 - [id number] Implanted:Qty: 1 on 01/22/2024 by Chuck Garcia MD at [facility] [employer] 10/16/2025 [id number] / / [id number] [employer] System Closure Repair Femoral Artery Suture Mediated Perclose Prostyle 02998-51 - [id number] Implanted:Qty: 1 on 01/22/2024 by Chuck Garcia MD at [facility] [employer] 10/16/2025 [id number] / / [id number] [facility] Mynxgrip 5fr Balloon Catheter Integrate Sealant Lock Latex Free [id number] - [id number] Implanted:Qty: 1 on 01/22/2024 by Chuck Garcia MD at [facility] [employer] 12/24/2025 [id number] / / [id number] [employer] System Closure Repair Femoral Artery Suture Mediated Perclose Prostyle 55377-63 - [id number] Implanted:Qty: 1 on 01/22/2024 by Chuck Garcia MD at [facility] 10/16/2025 51616-52 / / [id number] Explanted Type Area Investment Counselor Device Identifier Shelf Expiration Date Model / Serial / Lot [employer] Quad-Sparing 48mm Hexagon Head Screw Guide Sterile Mis [id number] - Sna - [id number] Explanted:Qty: 1 on 10/27/2022 by Allie Haq MD at [facility] Screw Right: Knee [employer] [id number] 12/15/2031 [id number] / NA / [id number] Description:Used for procedu re and removed at end of case. [employer] Quad-Sparing 48mm Hexagon Head Screw Guide Sterile Mis [id number] - Sna - [id number] Explanted:Qty: 1 on 10/27/2022 by Allie Haq MD at [facility] Screw Right: Knee [employer] [id number] 03/04/2032 [id number] / NA / [id number] Description:Used for procedu re and removed at end of case. Procedures Procedure Name Priority Date/Time Associated Diagnosis Comments US CAROTIDS DUPLEX BILATERAL Schedule Routine, Read Routine (OP Routine) 08/04/2024 10:18 AM CDT Encounter for surgical aftercare following surgery on the circulatory system from Last 3 Months Results * US Carotids Duplex Bilateral (08/04/2024 10:18 AM CDT) Anatomical Region Laterality Modality Vascular Bilateral Ultrasound 08/04/2024 9:59 AM CDT Narrative 08/04/2024 11:46 AM CDT [facility] - Department of Vascular Surgery, Vascular Laboratory [address] [place] [address] Carotid Duplex Ultrasound Report Patient Name: BOBBY MONREAL : 1940 (84y 1m) Study Date: 08/04/2024 9:59:20 AM Gender: M Tech: TT [facility] Ref Provider: CLARITZA JI Quality: Adequate Order Provider: CLARITZA JI PROCEDURES: Carotid Report: Carotid duplex examination of the extracranial arteries was performed using 2D, color and spectral Doppler. INDICATIONS: Z48.812 Encounter for surgical aftercare following surgery on the circulatory system. MEASUREMENTS: Right Value Units Left Value Units RT Prox CCA PSV 100 cm/sec LT Prox CCA PSV 138 cm/sec RT Prox CCA EDV 24 cm/sec LT Prox CCA EDV 23 cm/sec RT Distal CCA PSV 100 cm/sec LT Distal CCA PSV 122 cm/sec RT Distal CCA EDV 20 cm/sec LT Distal CCA EDV 20 cm/sec RT Prox ICA PSV 107 cm/sec LT Prox ICA PSV 105 cm/sec RT Prox ICA EDV 28 cm/sec LT Prox ICA EDV 24 cm/sec RT Mid ICA PSV 96 cm/sec LT Mid ICA PSV 96 cm/sec RT Mid ICA EDV 30 cm/sec LT Mid ICA EDV 27 cm/sec RT Distal ICA PSV 89 cm/sec LT Distal ICA PSV 94 cm/sec RT Distal ICA EDV 31 cm/sec LT Distal ICA EDV 35 cm/sec RT ECA Prx PSV 129 cm/sec LT ECA Prx PSV 111 cm/sec RT ICA/CCA 1.07 ratio LT ICA/CCA 0.86 ratio RT VERT PSV 46 cm/sec LT VERT PSV 56 cm/sec FINDINGS: Performing Non Destructive Testing Technician: Prateek Nichole RVT. Rt Common Carotid Artery: Duplex imaging of the right common carotid artery is within normal limits without evidence of atherosclerotic disease. Rt Internal Carotid Artery: Duplex imaging of the right internal carotid artery is within normal limits without evidence for atherosclerotic disease. Rt External Carotid Artery: The right external carotid artery is patent without evidence of atherosclerotic plaque. Rt Vertebral Artery: The right vertebral artery is patent with antegrade flow. Lt Common Carotid Artery: Duplex imaging of the left common carotid artery is within normal limits without evidence of atherosclerotic disease. Lt Internal Carotid Artery: Duplex imaging of the left internal carotid artery is within normal limits without evidence of atherosclerotic disease. Lt External Carotid Artery: The left external carotid artery is patent without evidence of atherosclerotic plaque. Lt Vertebral Artery: The left vertebral artery is patent with antegrade flow. CONCLUSIONS: 1. Normal right internal carotid artery, no evidence of significant plaque. 2. Normal left internal carotid artery, no evidence of significant plaque. 3. No evidence of hemodynamically significant stenosis in the common carotid artery bilaterally. 4. Normal, antegrade flow is noted in bilateral vertebral arteries. HISTORY: Right carotid endarterectomy.(05-01-22). PREVIOUS STUDIES: Previous carotid ultrasound on 07-30-23 normal bilateral ICA. DISCLAIMER: The study images and the final report will be retained in the patient chart by the Vascular Laboratory for the legally required time period. This chart constitutes the legal record of any testing performed. ATTESTATION: I have reviewed and interpreted the pertinent images and measurements of this study. I attest to the conclusions in the final report that is provided above. Electronically Signed By: Lane Ibarra MD FACS 08/04/2024 11:05:29 AM CDT Procedure Note Lane Ibarra MD - 08/04/2024 [facility] - Department of Vascular Surgery,Vascular Laboratory [address] [place] [address] Carotid Duplex Ultrasound Report Patient Name: BOBBY MONREAL : 1940 (84y 1m) Study Date: 08/04/2024 9:59:20 AM Gender: M Tech: TT Location: [facility] Provider: CLARITZA JI Quality: Adequate Order Provider: CLARITZA JI PROCEDURES: Carotid Report: Carotid duplex examination of the extracranial arterieswas performed using 2D, color and spectral Doppler. INDICATIONS: Z48.812 Encounter for surgical aftercare following surgery on thecirculatory system. MEASUREMENTS: Right Value Units Left Value Units RT Prox CCA PSV 100 cm/sec LT Prox CCA PSV 138 cm/sec RT Prox CCA EDV 24 cm/sec LT Prox CCA EDV 23 cm/sec RT Distal CCA PSV 100 cm/sec LT Distal CCA PSV 122 cm/sec RT Distal CCA EDV 20 cm/sec LT Distal CCA EDV 20 cm/sec RT Prox ICA PSV 107 cm/sec LT Prox ICA PSV 105 cm/sec RT Prox ICA EDV 28 cm/sec LT Prox ICA EDV 24 cm/sec RT Mid ICA PSV 96 cm/sec LT Mid ICA PSV 96 cm/sec RT Mid ICA EDV 30 cm/sec LT Mid ICA EDV 27 cm/sec RT Distal ICA PSV 89 cm/sec LT Distal ICA PSV 94 cm/sec RT Distal ICA EDV 31 cm/sec LT Distal ICA EDV 35 cm/sec RT ECA Prx PSV 129 cm/sec LT ECA Prx PSV 111 cm/sec RT ICA/CCA 1.07 ratio LT ICA/CCA 0.86 ratio RT VERT PSV 46 cm/sec LT VERT PSV 56 cm/sec FINDINGS: Performing Non Destructive Testing Technician: Prateek Nichole RVT. Rt Common Carotid Artery: Duplex imaging of the right common carotidartery is within normal limits without evidence of atherosclerotic disease. Rt Internal Carotid Artery: Duplex imaging of the right internal carotidartery is within normal limits without evidence for atherosclerotic disease. Rt External Carotid Artery: The right external carotid artery is patentwithout evidence of atherosclerotic plaque. Rt Vertebral Artery: The right vertebral artery is patent with antegradeflow. Lt Common Carotid Artery: Duplex imaging of the left common carotid arteryis within normal limits without evidence of atherosclerotic disease. Lt Internal Carotid Artery: Duplex imaging of the left internal carotidartery is within normal limits without evidence of atherosclerotic disease. Lt External Carotid Artery: The left external carotid artery is patentwithout evidence of atherosclerotic plaque. Lt Vertebral Artery: The left vertebral artery is patent with antegradeflow. CONCLUSIONS: 1. Normal right internal carotid artery, no evidence of significantplaque. 2. Normal left internal carotid artery, no evidence of significantplaque. 3. No evidence of hemodynamically significant stenosis in the commoncarotid artery bilaterally. 4. Normal, antegrade flow is noted in bilateral vertebral arteries. HISTORY: Right carotid endarterectomy.(05-01-22). PREVIOUS STUDIES: Previous carotid ultrasound on 07-30-23 normal bilateral ICA. DISCLAIMER: The study images and the final report will be retained in the patientchart by the Vascular Laboratory for the legally required time period. This chartconstitutes the legal record of any testing performed. ATTESTATION: I have reviewed and interpreted the pertinent images and measurements ofthis study. I attest to the conclusions in the final report that is provided above. Electronically Signed By: Lane Ibarra MD [facility] 08/04/2024 11:05:29 AM CDT Claritza Ji NP [facility] PROCEDURES Final Result from Last 3 Months Insurance MEDICARE [facility] MEDICARE [facility] MEDICARE [facility] Advance Directives For more information, please contact: [phone] Documents on File Type Date Recorded Patient Sugar Controller Expl anation ADVANCE DIRECTIVE 05/01/2022 11:11 AM Jennifer moseley of [employer] * Full Code (Latest Code Status on File) Date Activated Date Inactivated Comments 10/27/2022 2:16 PM 10/28/2022 3:31 PM * Full Code Date Activated Date Inactivated Comments 05/01/2022 6:03 PM 05/04/2022 3:03 PM Care Teams Senior Medical Technologist Relationship Specialty Start Date End Date Naren Sanchez MD PCP - General 11/27/16
--- OUTSIDE RECORDS SUMMARY | 2024-09-01 09:10 | XMS_ITS ---
Author Organization [facility] Address [address] [place] [address] Care Team Providers Care Glass Sander Name Role Phone Naren Sanchez MD Primary Care Provider Active Problems Problem Noted Date Diagnosed Date [...] 05/03/2022 Assessment & Plan (05/03/2022 9:36 AM BIOLOGICAL AIDE): - Right neck hematoma immediately post op, worsening post op day 1-2 - Patient endorsing discomfort with swallowing - ST consulted - Monitor neck hematoma - US 05/02: Hematoma within the right neck soft tissues without evidence of pseudoaneurysm. Carotid artery disease 05/01/2022 Stenosis of right carotid artery 04/12/2022 Overview (04/12/2022): Added automatically from request for surgery [id number] Assessment & Plan (05/03/2022 9:32 AM BIOLOGICAL AIDE): Hx of R carotid stenosis. Had a [...] 12/02/2021 Assessment & Plan (05/03/2022 9:43 AM BIOLOGICAL AIDE): Home regimen: losartan 100mg - restart home losartan as able, will resume at 1/2 dose today - SBP goal 110-150 Osteoarthritis of knee 12/02/2021 Primary malignant neoplasm of bladder 12/02/2021 Pure hypercholesterolemia 12/02/2021 Vertigo 10/26/2021 Gastroesophageal reflux disease without esophagi tis 06/05/2021 Assessment & Plan (05/01/2022 10:50 AM BIOLOGICAL AIDE): -cont home famotidine Assessment & Plan (06/05/2021 [...] (05/27/2020): Added automatically from request for surgery [id number] History of colon polyps 05/27/2020 Overview (05/27/2020): Added automatically from request for surgery [id number] Assessment & Plan (06/05/2021 3:31 PM CDT): [...] of her other endoscopists Chronic sinusitis 02/05/2017 Current Treatment and Therapy Plans No current plan information found. Past Treatment and Therapy Plans No past plan information found. Lifetime Dose Tracking * Chemical Lifetime Dose Automatic Entry Manual Entr y Air kerma at the reference point (Ka,r) 665 mGy 0 mGy 665 mGy DLP 2,048 mGycm 2,048 mGycm 0 mGycm
--- OUTSIDE RECORDS SUMMARY | 2024-09-01 09:10 | XMS_ITS | Referral Summary ---
Author Organization [facility] Address [address] [place] [address] Care Team Providers Care Senior National Account Manager Name Role Phone Naren Sanchez MD Primary Care Provider Encounters Date Type Department Care Team Description 08/04/2024 11:15 AM CDT Office Visit [facility] [address] [place] [address] [place] [address] Claritza Ji NP Encounter for surgical aftercare following surgery on the circulatory system (Primary Dx) 08/04/2024 10:15 AM CDT Ancillary Procedure [facility] Lab at the [facility] [address] [place] [address] [place] [address] Encounter for surgical aftercare following surgery on the circulatory system from Last 3 Months Allergies Active Allergy Reactions Criticality Noted Date [...] 05/03/2022 Assessment & Plan (05/03/2022 9:36 AM KINDERGARTEN PARAPROFESSIONAL): - Right neck hematoma immediately post op, worsening post op day 1-2 - Patient endorsing discomfort with swallowing - ST consulted - Monitor neck hematoma - US 05/02: Hematoma within the right neck soft tissues without evidence of pseudoaneurysm. Carotid artery disease 05/01/2022 Stenosis of right carotid artery 04/12/2022 Overview (04/12/2022): Added automatically from request for surgery [id number] Assessment & Plan (05/03/2022 9:32 AM KINDERGARTEN PARAPROFESSIONAL): Hx of R carotid stenosis. Had a [...] 12/02/2021 Assessment & Plan (05/03/2022 9:43 AM KINDERGARTEN PARAPROFESSIONAL): Home regimen: losartan 100mg - restart home losartan as able, will resume at 1/2 dose today - SBP goal 110-150 Osteoarthritis of knee 12/02/2021 Primary malignant neoplasm of bladder 12/02/2021 Pure hypercholesterolemia 12/02/2021 Vertigo 10/26/2021 Gastroesophageal reflux disease without esophagi tis 06/05/2021 Assessment & Plan (05/01/2022 10:50 AM KINDERGARTEN PARAPROFESSIONAL): -cont home famotidine Assessment & Plan (06/05/2021 [...] (05/27/2020): Added automatically from request for surgery [id number] History of colon polyps 05/27/2020 Overview (05/27/2020): Added automatically from request for surgery [id number] Assessment & Plan (06/05/2021 3:31 PM CDT): [...] of her other endoscopists Chronic sinusitis 02/05/2017 Immunizations Immunization Administration Dates Next Due Influenza, Quadrivalent, Spl it, Intramuscular 12/01/2020 Influenza, Trivalent, High D ose, Split, Preservative Free, Intramuscular 12/27/2018,12/11/2017,12/04/2016,12/09,12/02/2013 Influenza, Trivalent, IM (MDV) 01/13/2013 Influenza, Unspecified 12/17/2021 Pfizer SARS-CoV-2 Monovalent Vaccination (12+ Yrs) PURPLE 07/19/2021,05/20/2020,04/29/2020 Pneumococcal Conjugate PCV 13 07/23/2014 Social History Tobacco Use Types Packs/Day Years Used Date Smoking Tobacco: Former Cigarettes 0.5 32 1 978 - 7309 Passive Smoke Exposure: Past Smokeless Tobacco: Never [...] on file Legal Sex Male 3:06 AM KINDERGARTEN PARAPROFESSIONAL Gender Identity Not on file Sexual Orientation Not on file Last Filed Vital Signs Vital Sign Reading Time Taken Comments Blood Pressure 145/75 08/04/2024 10:17 AM CDT Pulse 71 08/04/2024 10:17 AM CDT Temperature 36.9 C (98.5 F) 01/23/2024 5:55 AM KINDERGARTEN PARAPROFESSIONAL Respiratory Rate 18 01/23/2024 5:55 AM KINDERGARTEN PARAPROFESSIONAL Oxygen Saturation 99% 08/04/2024 10:17 AM CDT Inhaled Oxygen Concentration - - Weight 88.2 kg (194 lb 7.1 oz) 08/04/2024 10:17 AM CDT Height 180.3 cm (5' 11) 08/04/2024 10:17 AM CDT Body Mass Index 27.12 08/04/2024 10:17 AM CDT Plan of Treatment Not on file Medical Devices Implanted Type Area Chiller Tender Device Identifier Shelf Expiration Date Model / Serial / Lot [employer] Simplex P Full Dose Radiopaque Preblend Cement Bone Tobramycin 6197-9-010 - Sna - [id number] Implanted:Qty: 1 on 10/27/2022 by Allie Haq MD at [facility] Bone Cement Right: Knee [employer] 01/17/2024 6197-9-010 / NA / [id number] Simplex P Full Dose Radiopaque Preblend Cement Bone Tobramycin 6197-9-010 - Sna - [id number] Implanted:Qty: 1 on 10/27/2022 by Allie Haq MD at [facility] Bone Cement Right: Knee [employer] 01/17/2024 6197-9-010 / NA / [id number] [employer] Vascu-Guard 8x.8cm Peripheral Patch Vascular Bovine Pericardium Vg-0108n - [id number] Implanted:Qty: 1 on 05/01/[address] Ibarra MD at [facility] Other - see comments Right: Carotid [employer] [id number] 12/26/2022 VG-0108N / / [id number] [employer] [id number] Persona Natural Tibia Stem Knee Right 5d F Baseplate Tibial - Sna - [id number] Implanted:Qty: 1 on 10/27/2022 by Allie Haq MD at [facility] Other - see comments Right: Knee [employer] [id number] 04/09/2032 [id number] / NA / [id number] Description:Implant pause pe rformed. [employer] Persona Cruciate Retain Cemented Knee Right 10 Standard Component [id number] - Sna - [id number] Implanted:Qty: 1 on 10/27/2022 by Allie Haq MD at [facility] Other - see comments Right: Knee [employer] [id number] 05/14/2031 [id number] / NA / [id number] Description:Implant pause pe rformed. [employer] Persona 10mm Knee Right 8-11 E-F Insert Articular Vivacit-E [id number] - Sna - [id number] Implanted:Qty: 1 on 10/27/2022 by Allie Haq MD at [facility] Other - see comments Right: Knee [employer] [id number] 08/25/2027 [id number] / NA / [id number] Description:Implant pause pe rformed. [employer] Closure Repair Femoral Artery Suture Mediated Perclose Prostyle 95050-16 - [id number] Implanted:Qty: 1 on 01/22/2024 by Chuck Garcia MD at [facility] [employer] 10/16/2025 [id number] / / [id number] [employer] Valve Aortic Trnscath Francisco 3 Ultra Resilia 26mm [id number] - [id number] - [id number] Implanted:Qty: 1 on 01/22/2024 by Chuck Garcia MD at [facility] [employer] 11/26/2025 [id number] / [id number] / [employer] System Closure Repair Femoral Artery Suture Mediated Perclose Prostyle 76033-71 - [id number] Implanted:Qty: 1 on 01/22/2024 by Chuck Garcia MD at [facility] [employer] 10/16/2025 76321-51 / / [id number] [employer] System Closure Repair Femoral Artery Suture Mediated Perclose Prostyle 90181-87 - [id number] Implanted:Qty: 1 on 01/22/2024 by Chuck Garcia MD at [facility] Vascular 10/16/2025 19023-29 / / [id number] [employer] Mynxgrip 5fr Balloon Catheter Integrate Sealant Lock Latex Free [id number] - [id number] Implanted:Qty: 1 on 01/22/2024 by Chuck Garcia MD at [facility] [employer] 12/24/2025 [id number] / / [id number] [employer] System Closure Repair Femoral Artery Suture Mediated Perclose Prostyle 70652-78 - [id number] Implanted:Qty: 1 on 01/22/2024 by Chuck Garcia MD at [facility] [employer] 10/16/2025 29526-63 / / [id number] Explanted Type Area Chiller Tender Device Identifier Shelf Expiration Date Model / Serial / Lot [employer] Quad-Sparing 48mm Hexagon Head Screw Guide Sterile Mis [id number] - Sna - [id number] Explanted:Qty: 1 on 10/27/2022 by Allie Haq MD at [facility] Screw Right: Knee [employer] [id number] 12/15/2031 [id number] / NA / [id number] Description:Used for procedu re and removed at end of case. [employer] Quad-Sparing 48mm Hexagon Head Screw Guide Sterile Mis [id number] - Sna - [id number] Explanted:Qty: 1 on 10/27/2022 by Allie Haq MD at [facility] Screw Right: Knee [employer] [id number] 03/04/2032 [id number] / NA / [id number] Description:Used for procedu re and removed at [...] AM CDT Narrative 08/04/2024 11:46 AM CDT [facility] - Department of Vascular Surgery, Vascular Laboratory [address] [place] [address] Carotid Duplex Ultrasound Report Patient Name: BOBBY MONREAL : 1940 (84y 1m) Study Date: 08/04/2024 9:59:20 AM Gender: M Tech: TT Location: [facility] Provider: CLARITZA JI Quality: Adequate Order Provider: [...] LT VERT PSV 56 cm/sec FINDINGS: Performing Cordwood Cutter Helper: Prateek Nichole RVT. Rt Common Carotid Artery: [...] Procedure Note Lane Ibarra MD - 08/04/2024 [facility] - Department of Vascular Surgery,Vascular Laboratory [address] [place] [address] Carotid Duplex Ultrasound Report Patient Name: BOBBY MONREAL : 1940 (84y 1m) Study Date: 08/04/2024 9:59:20 AM Gender: M Tech: TT Location: [facility] Provider: CLARITZA JI Quality: Adequate Order Provider: [...] LT VERT PSV 56 cm/sec FINDINGS: Performing Cordwood Cutter Helper: Prateek Nichole RVT. Rt Common Carotid Artery: [...] above. Electronically Signed By: Lane Ibarra MD [facility] 08/04/2024 11:05:29 AM CDT Claritza Ji [facility] PROCEDURES Final Result from Last 3 Months Insurance MEDICARE [facility] MEDICARE [facility] MEDICARE [facility] Advance Directives For more information, please contact: [phone] Documents on File Type Date Recorded Patient Carpet Installer Expl anation ADVANCE DIRECTIVE 05/01/2022 11:11 AM Jennifer r of Lap Cutter Truer Operator-Medical * Full Code (Latest Code Status on File) Date Activated Date Inactivated Comments 10/27/2022 2:16 PM 10/28/2022 3:31 PM * Full Code Date Activated Date Inactivated Comments 05/01/2022 6:03 PM 05/04/2022 3:03 PM Care Teams Senior National Account Manager Relationship Specialty Start Date End Date Naren Sanchez MD PCP - General 11/27/16
--- OUTSIDE RECORDS SUMMARY | 2024-09-01 09:10 | XMS_ITS | Clinical Summary ---
Author Organization [facility] Address [address] [place] [address] Care Team Providers Care Groover And Turner Name Role Phone Naren Sanchez MD Primary Care Provider [phone] Source Comments [facility],non-owned Affiliates and Associated Physician Practices is amultiple site organization consisting of ambulatory clinics and hospital sitesin [place], [place], [place] and [place]. This disclosure is being madepursuant to the Care Everywhere program and may not contain all information available regarding this patient. Last updated 17.[facility] Allergies No known active allergies Medications * Be aware that medications may not be up to date on this document. Alwaysverify current medications with the patient. 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 Family History Medical History Relation Name Comments Cancer Mother breast Cancer Paternal Grandmother stomach Relation Name Status Comments Mother Paternal Grandmother Social History Tobacco Use Types Packs/Day Years Used Date Smoking Tobacco: Former Cigarettes Q uit: 03/19/1990 Smokeless Tobacco: Never Tobacco Cessation:Counseling Given: No Alcohol Use Standard Drinks/Week Comments Yes 0 (1 standard drink = 0.6 oz pure alcohol) 1-2 drinks a day(wine beer whiskey) Sex and Gender Information Value Date Recorded Sex Assigned at Not on file 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 Gender Identity Not on file Sexual Orientation Not on file Last Filed Vital Signs Vital Sign Reading Time Taken Comments Blood Pressure 132/74 12/09/2023 8:33 AM CDT Pulse 67 12/09/2023 8:33 AM CDT Temperature 36.3 C (97.4 F) 12/09/2023 8:33 AM CDT Respiratory Rate 18 12/09/2023 8:33 AM CDT Oxygen Saturation 97% 12/09/2023 8:33 AM CDT Inhaled Oxygen Concentration - - Weight 90.5 kg (199 lb 9.6 oz) 12/07/2023 6:00 P M CDT Height 180.3 cm (5' 11) 12/07/2023 6:00 PM CDT Body Mass Index 27.84 12/07/2023 6:00 PM CDT Plan of Treatment Health Maintenance Due Date Last Done Comments MEDICARE AWV 12 MONTHS 1940 DTAP/TDAP/TD VACCINES (1 - Tdap) 07/02/1959 PNEUMOCOCCAL VACCINE 50+ (1 of 1 - PCV) 1990 ZOSTER VACCINE (1 of 2) 1990 Respiratory Syncytial Virus (RSV) Vaccine Pt: or over 60 yrs (1 - 1-dose 75+ series) 07/02/2015 COVID-19 VACCINE ( season) 2023 12/14/2022, 12/26/2021, 07/19/2021, Additional history exists DEPRESSION SCREENING 03/19/2024 INFLUENZA VACCINE (Season Ended) 2024 12/14/2022, 12/26/2021, 12/17/2021, Additional history exists HEPATITIS B VACCINE Aged Out No longe r eligible based on patient's age to complete this topic HIB VACCINE Aged Out No longer eligi ble based on patient's age to complete this topic HPV VACCINE Aged Out No longer eligi ble based on patient's age to complete this topic MENINGOCOCCAL (Group B) VACCINE SHARED DECISION-MAKING Aged Out No longer eligible based on patient's age to complete this topic MENINGOCOCCAL GROUPS A/C/Y/W VACCINE Aged Out No longer eligible based on patient's age to complete this topic Insurance MEDICARE [facility] Advance Directives * LIMITED RESUSCITATION-PRIOR AND AFTER ARREST (Latest Code Status on File) Date Activated Date Inactivated Comments 12/07/2023 3:35 PM 12/09/2023 1:05 PM Question Answer Comments Limited Resuscitation: No Chest Compress ionNo Intubation, No Invasive Ventilation Care Teams Groover And Turner Relationship Specialty Start Date End Date Naren Sanchez MD [address] [address] [address] [place] [address] PCP - General 09/21/10
== END 2024-09-01 08:49 | disposition home or self-care (01) ==
PROVIDERS: PCP Internal Medicine; Visit Provider Otolaryngology
DX: J34.2 Deviated nasal septum (principal); J33.0 Polyp of nasal cavity; J32.4 Chronic pansinusitis; H90.3 Sensorineural hearing loss, bilateral; Z97.4 Presence of external hearing-aid
CPT/HCPCS: 70486